=== PATIENT | male | born 1975 | race Caucasian/White ===

== ENCOUNTER 2016-12-08 20:21 | Emergency (ER) | payer MEDICAID ==
[~2016-12-08] VITALS: Ht 188 cm; Wt 95.3 kg
[2016-12-08 20:21] VITALS: BP 135/82; PULSE 110; RESP 18; TEMP 99.1; O2SAT 98
--- NOTE | 2016-12-08 20:21 | NUR ---
Patient triaged and placed in waiting room. VSS and patient appears in no acute distress at this time. Accompanied by FRIEND, awaiting available bed, and MD notified of need for MSE.
--- NOTE | 2016-12-08 20:35 | NUR ---
Patient to ER bed 07 to gown for evaluation. Side rails up. Report given to ANDRE AMBROCIO.
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
--- NOTE | 2016-12-08 20:45 | NUR ---
HOMER MAE EXAMING PATIENT AT BEDSIDE
[2016-12-08] MEDS ORDERED: cefTRIAXone 1 GM VIAL IM ONE (22:00)
[2016-12-08 22:05] VITALS: BP 128/78; PULSE 96; RESP 18; TEMP 98.9; O2SAT 99
--- NOTE | 2016-12-08 22:05 | NUR ---
Patient given written and verbal discharge instructions and verbalizes understanding. ER MD discussed with patient the results and treatment provided. Patient in stable condition. ID arm band removed. Rx of BACTRIM, MOTRIN, KEFLEX given. Patient educated on pain management and to follow up with PMD. Pain Scale 0/10. Opportunity for questions provided and answered.
[2016-12-08] MEDS ORDERED: IBUPROFEN 800 MG TABLET PO ONE (22:15)
[2016-12-08] MEDS ORDERED: LIDOCAINE 1%, 20 ML MDV 20 ML ONE (22:40)
== END 2016-12-08 22:05 | disposition home or self-care (01) ==
LOC: SED 20:21
DX: L02.413 Cutaneous abscess of right upper limb (principal); Z98.890 Other specified postprocedural states
CPT/HCPCS: 96372; 99283; J0696; J2001

== ENCOUNTER 2018-09-27 17:36 | Emergency (ER) | payer OTHER ==
[~2018-09-27] VITALS: Ht 188 cm; Wt 95.3 kg
[2018-09-27 17:40] VITALS: BP_SYST 160
--- NOTE | 2018-09-27 17:46 | NUR ---
Patient to ER bed 07 to gown for evaluation. Side rails up.
--- NOTE | 2018-09-27 17:48 | NUR ---
Jess Billings [employer] at bedside to evaluate patient.
--- NOTE | 2018-09-27 17:50 | NUR ---
Patient to ER via triage with c/o pain/burning with urination, and generalized body aches. Patient is awake, alert and oriented in no acute distress, no cva tenderness reported, respirations even and unlabored, skin warm and dry to touch. Patient able to provide urine sample before being brought back to room-specimen sent to lab. Patient being examined by Jess Billings NP, this RN acting as plywood matcher for exam. Will continue to observe and assess.
[2018-09-27 17:58] LABS: BILIRUBIN,URINE NEGATIVE (NEGATIVE); BLOOD, URINE 3+ (NEGATIVE); CLARITY/URINE HAZY (CLEAR); COLOR,URINE YELLOW (YELLOW); GLUCOSE,URINE NEGATIVE (NEGATIVE); KETONES,URINE NEGATIVE (NEGATIVE); LEUKOCYTE ESTERASE ,URINE 2+ (NEGATIVE); NITRITE, URINE POSITIVE (NEGATIVE); PH,URINE 5.5 (5.0-8.0); PROTEIN URINE 2+ (NEGATIVE); UROBILINOGEN,URINE 0.2 (0.2-1.0)
[2018-09-27] MEDS ORDERED: AZITHROMYCIN 250 MG TABLET PO ONE (18:00)
[2018-09-27] MEDS ORDERED: cefTRIAXone 250 MG VIAL IM ONE (18:00)
[2018-09-27 18:15] LABS: BACTERIA,URINE MODERATE /HPF (None Seen); RBC,URINE 50-80 /HPF (0-3); WBC,URINE >100 /HPF (0-3)
[2018-09-27] MEDS ORDERED: NACL 0.9% 1,000 ML IV ONE (18:15)
[2018-09-27] MEDS ORDERED: KETOROLAC TROMETHAMINE 30 MG VIAL IVP ONE (18:15)
[2018-09-27 18:16] LABS: MUCUS,URINE None Seen /LPF (None Seen); YEAST,URINE None Seen /HPF (None Seen)
[2018-09-27] MEDS ORDERED: LORazepam 2 MG/ML VIAL (FOR ER USE) IVP ONE (18:30)
[2018-09-27] MEDS ORDERED: cefTRIAXone 1 GM in D5W 50 ML IV ONE (18:30)
[2018-09-27] MEDS ORDERED: cefTRIAXone 1 GM VIAL ONE (18:34)
[2018-09-27 18:45] LABS: EOSINOPHILS % (AUTO) 0.3 % (0.0-4.0)
--- NOTE | 2018-09-27 18:50 | NUR ---
Patient resting quietly in no acute distress, awaiting lab results and dispo. No adverse reaction noted to medication.
[2018-09-27 19:05] LABS: CALCIUM 9.2 mg/dL (8.4-11.0); CREATININE 1.07 mg/dL (0.55-1.30); POTASSIUM 4.6 mmol/L (3.5-5.1)
[2018-09-27 19:09] LABS: ALBUMIN 3.8 g/dL (3.4-4.8); TOTAL BILIRUBIN 0.8 mg/dL (0.0-1.0)
[2018-09-27 19:20] LABS: BASOPHILS % (AUTO) 0.2 % (0.0-2.0); HEMATOCRIT 45.3 % (36-54); HEMOGLOBIN 15.3 g/dL (14.0-18.0); LYMPHOCYTES # (AUTO) 2.4 K/uL (1.0-5.5); MEAN CORPUSCULAR HEMOGLOBIN 28 pg (27-31); MEAN CORPUSCULAR HGB CONC 34 % (32-36); MEAN CORPUSCULAR VOLUME 84 fL (79.0-98.0); MONOCYTES # (AUTO) 1.3 K/uL (0.0-1.0); MONOCYTES % (AUTO) 8.1 % (1.7-9.3); NEUTROPHILS # (AUTO) 12.1 K/uL (1.8-7.7); NEUTROPHILS % (AUTO) 76.4 % (40.0-70.0); PLATELET COUNT (AUTO) 237 K/uL (130-430); RED BLOOD CELL COUNT(AUTO) 5.43 MIL/uL (4.2-6.2); RED CELL DISTRIBUTION WIDTH 12.9 % (9.0-15.0); WHITE BLOOD COUNT (AUTO) 15.8 K/uL (4.8-10.8)
[2018-09-27 19:30] VITALS: BP_SYST 140
--- NOTE | 2018-09-27 19:30 | NUR ---
Patient given written and verbal discharge instructions and verbalizes understanding. ER MD discussed with patient the results and treatment provided. Patient in stable condition. ID arm band removed. IV catheter removed intact and dressing applied, no active bleeding. Rx of Cipro, Motrin given. Patient educated on pain management and to follow up with PMD. Pain Scale 0. Opportunity for questions provided and answered. Medication side effect fact sheet provided. Patient left ER in no acute distress, ambulating without difficulty with slow, steady gait with friend at his side. No adverse reaction noted to medication.
[2018-09-30 01:24] LABS: CHLAMYDIA TRACHOMATIS NAA Negative (Negative); NEISSERIA GONORRHOEAE NAA Negative (Negative)
== END 2018-09-27 19:30 | disposition home or self-care (01) ==
LOC: SED 17:36
DX: N41.0 Acute prostatitis (principal); N39.0 Urinary tract infection, site not specified; D72.829 Elevated white blood cell count, unspecified; F17.210 Nicotine dependence, cigarettes, uncomplicated; Z71.6 Tobacco abuse counseling
CPT/HCPCS: 36415; 74176; 80053; 81000; 83605; 83690; 85025; 86592; 87040; 87086; 87186; 87491; 87591; 96365; 96375; 99284; J0696; J1885; J2060; J7030; Q0144

== ENCOUNTER 2018-11-19 19:21 | Emergency (ER) | payer OTHER ==
[~2018-11-19] VITALS: Ht 188 cm; Wt 95.3 kg
[2018-11-19 19:30] VITALS: BP_SYST 163
[2018-11-19] MEDS ORDERED: KETOROLAC TROMETHAMINE 30 MG VIAL IVP ONE (20:15)
[2018-11-19] MEDS ORDERED: ONDANSETRON HCL 4 MG/2 ML VIAL IVP ONE (20:15)
[2018-11-19 20:42] LABS: BASOPHILS # (AUTO) 0.1 K/uL (0.0-0.2); BASOPHILS % (AUTO) 1.9 % (0.0-2.0); EOSINOPHILS % (AUTO) 0.5 % (0.0-4.0); HEMATOCRIT 48.8 % (36-54); HEMOGLOBIN 16.6 g/dL (14.0-18.0); LYMPHOCYTES # (AUTO) 0.8 K/uL (1.0-5.5); LYMPHOCYTES % (AUTO) 12.4 % (20.5-51.5); MEAN CORPUSCULAR HEMOGLOBIN 28 pg (27-31); MEAN CORPUSCULAR HGB CONC 34 % (32-36); MEAN CORPUSCULAR VOLUME 83 fL (79.0-98.0); MONOCYTES # (AUTO) 0.5 K/uL (0.0-1.0); MONOCYTES % (AUTO) 7.4 % (1.7-9.3); NEUTROPHILS # (AUTO) 4.7 K/uL (1.8-7.7); NEUTROPHILS % (AUTO) 77.8 % (40.0-70.0); PLATELET COUNT (AUTO) 207 K/uL (130-430); RED CELL DISTRIBUTION WIDTH 12.5 % (9.0-15.0); WHITE BLOOD COUNT (AUTO) 6.1 K/uL (4.8-10.8)
[2018-11-19 20:50] LABS: CALCIUM 9.1 mg/dL (8.4-11.0); CREATININE 0.83 mg/dL (0.55-1.30)
[2018-11-19 20:54] LABS: ALBUMIN 3.7 g/dL (3.4-4.8); TOTAL BILIRUBIN 0.7 mg/dL (0.0-1.0)
[2018-11-19] MEDS ORDERED: NACL 0.9% 1,000 ML IV ONE (21:00)
[2018-11-19 21:14] LABS: BILIRUBIN,URINE NEGATIVE (NEGATIVE); BLOOD, URINE NEGATIVE (NEGATIVE); CLARITY/URINE CLEAR (CLEAR); COLOR,URINE YELLOW (YELLOW); GLUCOSE,URINE NEGATIVE (NEGATIVE); KETONES,URINE NEGATIVE (NEGATIVE); LEUKOCYTE ESTERASE ,URINE NEGATIVE (NEGATIVE); NITRITE, URINE NEGATIVE (NEGATIVE); PROTEIN URINE NEGATIVE (NEGATIVE); UROBILINOGEN,URINE 0.2 (0.2-1.0)
[2018-11-19 21:44] VITALS: BP_SYST 146
== END 2018-11-19 21:44 | disposition home or self-care (01) ==
LOC: SED 19:21
DX: K56.7 Ileus, unspecified (principal); R03.0 Elevated blood-pressure reading, without diagnosis of hypertension; F17.200 Nicotine dependence, unspecified, uncomplicated
CPT/HCPCS: 36415; 74176; 80053; 81003; 83690; 85025; 96374; 96375; 99284; J1885; J2405; J7030

== ENCOUNTER 2022-02-25 06:01 | Emergency (ER) | payer BC, OTHER ==
[~2022-02-25] VITALS: Ht 188 cm; Wt 99.8 kg
[2022-02-25 06:05] VITALS: BP_SYST 136
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
[2022-02-25 06:16] VITALS: BP_SYST 136
--- NOTE | 2022-02-25 06:30 | NUR ---
ER at bedside examining patient.
[2022-02-25] MEDS ORDERED: CEPH-548 PO ×2 (06:32)
[2022-02-25] MEDS: cefTRIAXone 1 GM in LIDOCAINE 1%, 20 ML MDV 2.1 ML IM ONE (06:41)
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
--- NOTE | 2022-02-25 07:15 | NUR ---
RECEIVED REPORT FROM KARINA, WILL ASSUME CARE.
[2022-02-25] MEDS ORDERED: CEPH250C PO (07:18)
--- NOTE | 2022-02-25 07:30 | NUR ---
Crutches properly fitted for patient by ARLETTE STAPLETON RN. Patient given crutch walking instructions and demonstration. Is able to demonstrate adequate crutch walking technique with crutches provided.
--- NOTE | 2022-02-25 07:34 | NUR ---
Patient given written and verbal discharge instructions and verbalizes understanding. ER MD discussed with patient the results and treatment provided. Patient in stable condition. ID arm band removed. Rx of KEFLEX given. Patient educated on pain management and to follow up with PMD. Pain Scale 0/10. Opportunity for questions provided and answered. Medication side effect fact sheet provided.
== END 2022-02-25 07:34 | disposition home or self-care (01) ==
LOC: SED 06:01
DX: L03.115 Cellulitis of right lower limb (principal); V49.49XA Driver injured in collision with other motor vehicles in traffic accident, initial encounter; Y93.89 Activity, other specified; Y92.89 Other specified places as the place of occurrence of the external cause; Y99.8 Other external cause status
CPT/HCPCS: 73630; 96372; 99283; J0696; J2001

== ENCOUNTER 2022-02-26 16:13 | Emergency (ER) | payer BC ==
[~2022-02-26] VITALS: Ht 188 cm; Wt 99.8 kg
[2022-02-26 16:13] VITALS: BP_SYST 170
[~2022-02-26 16:13] MED LIST: CEPH-548 PO; CEPH250C PO
--- NOTE | 2022-02-26 16:13 | NUR ---
Patient to ER bed 05 to gown for evaluation. Side rails up. Report given to ANDRE Corrales
--- NOTE | 2022-02-26 16:33 | NUR ---
Dr Sign at patients bedside
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
--- NOTE | 2022-02-26 16:38 | NUR ---
obtained covid swab and took to lab
--- NOTE | 2022-02-26 17:16 | NUR ---
22G PIV PLACED TO LEFT HAND
[2022-02-26] MEDS ORDERED: cefTRIAXone 1 GM VIAL ONE (17:19)
[2022-02-26] MEDS: cefTRIAXone 1 GM in D5W 50 ML IV ONE (17:28)
[2022-02-26 17:30] LABS: BASOPHILS # (AUTO) 0.1 K/uL (0.0-0.2); BASOPHILS % (AUTO) 1.1 % (0.0-2.0); EOSINOPHILS # (AUTO) 0.2 K/uL (0.0-0.4); EOSINOPHILS % (AUTO) 1.7 % (0.0-4.0); HEMATOCRIT 43.9 % (36-54); HEMOGLOBIN 15.1 g/dL (14.0-18.0); LYMPHOCYTES # (AUTO) 2.4 K/uL (1.0-5.5); LYMPHOCYTES % (AUTO) 24.1 % (20.5-51.5); MEAN CORPUSCULAR HEMOGLOBIN 27 pg (27-31); MEAN CORPUSCULAR HGB CONC 34 % (32-36); MEAN CORPUSCULAR VOLUME 79 fL (79.0-98.0); MONOCYTES # (AUTO) 0.8 K/uL (0.0-1.0); MONOCYTES % (AUTO) 7.8 % (1.7-9.3); NEUTROPHILS # (AUTO) 6.6 K/uL (1.8-7.7); NEUTROPHILS % (AUTO) 65.3 % (40.0-70.0); PLATELET COUNT (AUTO) 306 K/uL (130-430); RED BLOOD CELL COUNT(AUTO) 5.54 MIL/uL (4.2-6.2); WHITE BLOOD COUNT (AUTO) 10.1 K/uL (4.8-10.8)
[2022-02-26 17:34] LABS: CALCIUM 9.8 mg/dL (8.4-11.0); CREATININE 1.18 mg/dL (0.55-1.30); POTASSIUM 4.6 mmol/L (3.5-5.1)
[2022-02-26 17:40] LABS: ALBUMIN 3.5 g/dL (3.4-4.8); TOTAL BILIRUBIN 0.5 mg/dL (0.0-1.0)
--- NOTE | 2022-02-26 17:40 | NUR ---
MD IN ROOM SPEAKING WITH PATIENT.
--- NOTE | 2022-02-26 17:49 | NUR ---
IV ABX INFUSING PER ORDER
--- NOTE | 2022-02-26 18:00 | NUR ---
Patient given written and verbal discharge instructions and verbalizes understanding. ER MD discussed with patient the results and treatment provided. Patient in stable condition. ID arm band removed. IV catheter removed intact and dressing applied, no active bleeding. Rx given. Patient educated on pain management and to follow up with PMD. Pain Scale 2/10 Opportunity for questions provided and answered. Medication side effect fact sheet provided.
[2022-02-26 18:09] VITALS: BP_SYST 174
== END 2022-02-26 18:09 | disposition home or self-care (01) ==
LOC: SED 16:13
DX: L03.115 Cellulitis of right lower limb (principal); Z79.899 Other long term (current) drug therapy
CPT/HCPCS: 36415; 80053; 83605; 85025; 87040; 87426; 96365; 99284; J0696